=== PATIENT | female | born 1975 | race Hispanic/Latino ===

== ENCOUNTER 2019-08-04 13:10 | Outpatient (CLI) | payer OTHER ==
--- NOTE | 2019-08-04 13:57 | ULT ---
Bilateral renal ultrasound CLINICAL INDICATION: Renal stone. COMPARISON: None FINDINGS: Right kidney: There is no evidence of a renal mass, renal calculus, or hydronephrosis seen. The right kidney measures 10.6 cm x 4.9 cm. Left kidney: Approximately 6 mm echogenic focus is seen in the midportion left kidney likely due to a nonobstructing calculus. No renal mass or hydronephrosis is seen on the left.The left kidney measures 11.3 cm x 6.2 cm. Urinary bladder: Within normal limits for degree of distention. IMPRESSION: 1. Nonobstructing left renal calculus. 2. Normal appearance of the right kidney. 3. No evidence of hydronephrosis.
== END 2019-08-04 13:11 | disposition home or self-care (01) ==
LOC: BICULT 13:10
PROVIDERS: ATTEND Urology
DX: N20.0 Calculus of kidney (principal)
CPT/HCPCS: 76770

== ENCOUNTER 2021-07-22 14:08 | Outpatient (CLI) | payer BC | END 2021-07-22 14:09 | disposition home or self-care (01) | LOC: BICCT 14:08 | PROVIDERS: ATTEND Urology | DX: N20.0 Calculus of kidney (principal) | CPT/HCPCS: 74176 ==

== ENCOUNTER 2022-05-25 10:49 | Outpatient (CLI) | payer BC | END 2022-05-25 10:50 | disposition home or self-care (01) | LOC: BICMAMMO 10:49 | PROVIDERS: ATTEND Family Medicine | DX: Z12.31 Encounter for screening mammogram for malignant neoplasm of breast (principal); Z80.3 Family history of malignant neoplasm of breast | CPT/HCPCS: 77063; 77067 ==

== ENCOUNTER 2023-08-17 14:10 | Outpatient (CLI) | payer OTHER | END 2023-08-17 14:11 | disposition home or self-care (01) | LOC: BICMAMMO 14:10 | PROVIDERS: ATTEND Student in an Organized Health Care Education/Training Program | DX: Z12.31 Encounter for screening mammogram for malignant neoplasm of breast (principal) | CPT/HCPCS: 77063; 77067 ==

== ENCOUNTER 2024-04-15 13:14 | Outpatient (CLI) | payer OTHER | END 2024-04-15 13:15 | disposition home or self-care (01) | LOC: BICMRI 13:14 | PROVIDERS: ATTEND Orthopaedic Surgery | DX: M71.22 Synovial cyst of popliteal space [Baker], left knee (principal); M25.562 Pain in left knee; M22.2X2 Patellofemoral disorders, left knee; R60.0 Localized edema ==

== ENCOUNTER 2024-07-18 10:06 | Outpatient (CLI) | payer OTHER | END 2024-07-18 10:07 | disposition home or self-care (01) | LOC: DTY/OP 10:06 | PROVIDERS: ATTEND Student in an Organized Health Care Education/Training Program | DX: E78.00 Pure hypercholesterolemia, unspecified (principal) | CPT/HCPCS: 97802 ==

== ENCOUNTER 2024-08-19 10:54 | Outpatient (CLI) | payer OTHER | END 2024-08-19 10:55 | disposition home or self-care (01) | LOC: BICMAMMO 10:54 | PROVIDERS: ATTEND Student in an Organized Health Care Education/Training Program | DX: Z12.31 Encounter for screening mammogram for malignant neoplasm of breast (principal); Z80.3 Family history of malignant neoplasm of breast | CPT/HCPCS: 77063; 77067 ==

== ENCOUNTER 2025-08-21 11:34 | Outpatient (CLI) | payer OTHER | END 2025-08-21 11:35 | disposition home or self-care (01) | LOC: BICMAMMO 11:34 | PROVIDERS: ATTEND Family Medicine | DX: Z12.31 Encounter for screening mammogram for malignant neoplasm of breast (principal); Z80.3 Family history of malignant neoplasm of breast | CPT/HCPCS: 77063; 77067 ==